=== PATIENT | female | born 1975 | race African-American/Black ===

== ENCOUNTER 2021-05-26 08:04 | Emergency (ER) | payer OTHER ==
[~2021-05-26] VITALS: Ht 149.9 cm; Wt 49.9 kg
[2021-05-26 08:12] VITALS: BP 119/71
[2021-05-26] MEDS ORDERED: MORPHINE SULFATE INJ 4 MG/ML DISP.SYRIN ONE (08:16)
[2021-05-26] MEDS ORDERED: LIDOCAINE HCL/MPF 1% 30 ML VIAL IJ ONE (08:16)
[2021-05-26] MEDS ORDERED: ONDANSETRON 4 MG TAB.RAPDIS ONE (08:16)
[2021-05-26] MEDS ORDERED: MORPHINE SULFATE INJ 2 MG/ML DISP.SYRIN IM ONE (08:30)
[2021-05-26] MEDS ORDERED: LIDOCAINE HCL/PF 1% 30 ML VIAL TP ONE (08:30)
[2021-05-26] MEDS ORDERED: ONDANSETRON 4 MG TAB.RAPDIS SL ONE (08:30)
--- NOTE | 2021-05-26 08:30 | NUR ---
I&D SET UP. PATIENT MEDICATED.
--- NOTE | 2021-05-26 08:49 | NUR ---
I&D DONE, DRAINED BY DR. ABBOTT. COVERED WITH DRESSING.
--- NOTE | 2021-05-26 08:50 | NUR ---
PATIENT IS REQUESTING FOR [employer] TREASURY CONSULTANT. CALLED [employer]PT. NO ANSWER AT THIS TIME.
[2021-05-26] MEDS ORDERED: SULF1TAB48 PO (08:55)
--- NOTE | 2021-05-26 09:58 | NUR ---
PATIENT A/OX3, BREATHING EVEN AND UNLABORED, NO SOB NOTED. Patient discharged to caregiver in stable condition. Written and verbal after care instructions given. Patient verbalizes understanding of instruction.
== END 2021-05-26 09:59 | disposition home or self-care (01) ==
LOC: ER 08:33
DX: L02.31 Cutaneous abscess of buttock (principal); F32.9 Major depressive disorder, single episode, unspecified
CPT/HCPCS: 10060; 96372; 99283; J2270; J3490 ×2; Q0162

== ENCOUNTER 2022-01-27 14:24 | Emergency (ER) | payer OTHER ==
[~2022-01-27] VITALS: Ht 149.9 cm; Wt 41.3 kg
[~2022-01-27 14:24] MED LIST: SULF1TAB48 PO
--- NOTE | 2022-01-27 14:30 | NUR ---
[id number] FROM [facility] FOR NOTED FACIAL SWELLING/FORHEAD ABSCESS AND LEFT EAR X1WEEK. PATIENT IS ALERT, ORIENTED X4. VITALS CHECKED. PLACED COMFORTABLY IN BED
[2022-01-27] MEDS ORDERED: IV NS 0.9% 1,000 ML BAG IV ONE (15:30)
[2022-01-27] MEDS ORDERED: VANCOMYCIN 1 GM in IV D5W 250 ML IV ONE (15:30)
[2022-01-27] MEDS ORDERED: IV NS 0.9% 500 ML BAG IV ONE (15:30)
[2022-01-27] MEDS ORDERED: HYDROMORPHONE 1 MG/1 ML DISP.SYRIN IV ONE ×2 (15:30→18:30)
[2022-01-27] MEDS ORDERED: ONDANSETRON HCL/PF - ER 4 MG/2 ML VIAL IV ONE (15:30)
[2022-01-27] MEDS ORDERED: CEFEPIME 1 GM in IV D5W 50 ML IV ONE (15:30)
--- NOTE | 2022-01-27 15:30 | NUR ---
IV CANNULA G18 INSERTED ON RIGHT AC. BLOOD DRAWN AND SENT TO LAB
--- NOTE | 2022-01-27 15:40 | NUR ---
URINE SPECIMEN SENT TO LAB
--- NOTE | 2022-01-27 15:46 | NUR ---
CXR DONE AT BEDSIDE
[2022-01-27] MEDS ORDERED: ONDANSETRON HCL/PF 4 MG/2 ML VIAL ONE (15:52)
[2022-01-27] MEDS ORDERED: VANCOMYCIN 1 GM VIAL ONE (15:52)
[2022-01-27] MEDS ORDERED: CEFEPIME 1 GM VIAL ONE (15:52)
[2022-01-27] MEDS ORDERED: HYDROMORPHONE 1 MG/1 ML DISP.SYRIN ONE ×2 (15:53→20:01)
--- NOTE | 2022-01-27 16:19 | NUR ---
IV CEFEPIME 1GM STARTED AT 1619H VIA IV CANNULA G18 ON RT AC. END TIME 1649H.
[2022-01-27 16:35] LABS: BASOPHILS % (AUTO) 0.5 % (0.0-2.0); EOSINOPHILS % (AUTO) 1.2 % (0.0-6.0); HEMATOCRIT 38 % (33-45); HEMOGLOBIN 12.6 g/dL (11.5-14.8); LYMPHOCYTES # (AUTO) 2.3 K/uL (0.8-4.8); LYMPHOCYTES % (AUTO) 27.5 % (20.0-44.0); MEAN CORPUSCULAR HGB CONC 33 g/dl (31.0-36.0); MEAN CORPUSCULAR VOLUME 90 fL (82-100); MONOCYTES # (AUTO) 0.9 K/uL (0.1-1.30); MONOCYTES % (AUTO) 11.5 % (2.0-12.0); NEUTROPHILS # (AUTO) 4.9 K/uL (1.8-8.9); NEUTROPHILS % (AUTO) 59.3 % (43.0-81.0); PLATELET COUNT (AUTO) 376 K/uL (150-450); RED BLOOD CELL COUNT(AUTO) 4.23 MIL/uL (4.0-5.2); WHITE BLOOD COUNT (AUTO) 8.2 K/uL (4.3-11.0)
[2022-01-27 16:43] LABS: BILIRUBIN,URINE NEGATIVE (NEGATIVE); COLOR,URINE YELLOW (YELLOW); LEUKOCYTE ESTERASE ,URINE NEGATIVE (NEGATIVE); NITRITE, URINE NEGATIVE (NEGATIVE); PH,URINE 5.5 (5.0-8.0); PROTEIN,URINE NEGATIVE (NEGATIVE); UGLUCOSE NEGATIVE (NEGATIVE)
[2022-01-27] MEDS ORDERED: diphenhydrAMINE HCL 50 MG/ML VIAL ONE (16:54)
--- NOTE | 2022-01-27 16:55 | NUR ---
PT COMPLAINT OF BODY ITCHINESS. STOPPED VANCO IVPB. DR CLARKE INFORMED WITH ORDERS TO BE CARRIED OUT
[2022-01-27] MEDS ORDERED: diphenhydrAMINE HCL 50 MG/ML VIAL IV ONE (17:00)
[2022-01-27 17:37] LABS: BACTERIA,URINE 1+ /HPF (None Seen); RBC,URINE 0-2 /HPF (0-2); WBC,URINE 0-2 /HPF (0-3)
[2022-01-27 18:37] LABS: ALANINE AMINOTRANSFERASE 22 U/L (12-78); ALBUMIN 3.1 g/dL (3.4-5.0); ALKALINE PHOSPHATASE 90 U/L (46-116); ASPARTATE AMINOTRANSFERASE 17 U/L (15-37); BILIRUBIN,DIRECT 0.1 mg/dL (0.0-0.2); BILIRUBIN,TOTAL 0.4 mg/dL (0.2-1.0); CALCIUM, SERUM 9.4 mg/dL (8.5-10.1); CARBON DIOXIDE 26 mmol/L (21-32); CHLORIDE 102 mmol/L (98-107); CREATININE 0.6 mg/dL (0.6-1.3); GLUCOSE 106 mg/dL (74-106); SODIUM SERUM 136 mmol/L (136-145); TOTAL PROTEIN, SERUM 7.5 g/dL (6.4-8.2); UREA NITROGEN, BLOOD 12 mg/dL (7-18)
[2022-01-27] MEDS ORDERED: IOHEXOL-300 100 ML VIAL IV ONE (18:45)
--- NOTE | 2022-01-27 18:45 | NUR ---
PATIENT WHEELED TO RADIOLOGY ROOM FOR CT SCAN
[2022-01-27] MEDS ORDERED: IV NS 0.9% 250 ML IV ONE (18:46)
[2022-01-27] MEDS ORDERED: CT SWABBABLE VALVE TRANS SET 1 EA INFUS.SET MC ONE (18:46)
[2022-01-27] MEDS ORDERED: CEPH500C2 PO (21:10)
[2022-01-27] MEDS ORDERED: HYDR-3972 PO (21:10)
[2022-01-27] MEDS ORDERED: SULF1TAB48 PO (21:10)
--- NOTE | 2022-01-27 22:22 | NUR ---
PATIENT IS FOR DISCHARGE BUT NOBODY CAN PICK HER UP. SHE CANNOT PROVIDE CELL # OF PEOPLE SHE LIVES WITH. SHE ONLY PROVIDED US CELL # OF THE [facility] ([phone] BUT [facility] IS NOT PICKING UP. CHARGE NURSE GREGG DECIDED TO LET PATIENT STAY OVERNIGHT IN 13 AND DISCHARGE CAN BE ARRANGE IN AM TOGETHER WITH SEED ANALYSIS LABORATORY ASSISTANT. PATIENT LIVES AT : [address] [place] [address]
--- NOTE | 2022-01-28 05:30 | NUR ---
ABLE TO CONTACT NEIGHBOR WHO WILL BE ABLE TO RECEIVE PATIENT AT HOME. WILL ARRANGE FOR TRANSPORT HOME.
--- NOTE | 2022-01-28 05:32 | NUR ---
[facility] ETA 30-60MIN
--- NOTE | 2022-01-28 06:35 | NUR ---
IV removed. Catheter intact and site benign. Pressure and 4x4 applied to site. No bleeding noted.
--- NOTE | 2022-01-28 06:36 | NUR ---
STACY VILLEGASNCE 285 AT BEDSIDE FOR PT TRANSPORT BACK TO HER RESIDENCE IN STABLE CONDITION. REPORT GIVEN TO SHIP/REC/DOC CONTROL
[2022-01-28 06:37] VITALS: BP 131/62
== END 2022-01-28 06:41 | disposition home or self-care (01) ==
LOC: ER 14:26
DX: L02.01 Cutaneous abscess of face (principal); H60.92 Unspecified otitis externa, left ear; L30.9 Dermatitis, unspecified; F32.A Depression, unspecified; R94.31 Abnormal electrocardiogram [ECG] [EKG]
CPT/HCPCS: 36415; 70460; 70487; 71045; 80048; 80076; 80307; 80320; 81001; 83605; 84145; 84484; 84703; 85025; 85730; 87040 ×2; 87086; 93005; 96365; 96368; 96375; 96376; 99285; A6253; J0692 ×2; J1170 ×2; J1200; J2405 ×2; J3370; J7030; J7050; J7060 ×2; Q9967; G0480

== ENCOUNTER 2024-06-18 22:56 | Emergency (ER) | payer MEDICAID, OTHER ==
[~2024-06-18] VITALS: Ht 157.5 cm; Wt 59.0 kg
[~2024-06-18 22:56] MED LIST changes: +CEPH500C2 PO; +HYDR-3972 PO
[2024-06-19] MEDS ORDERED: KETOROLAC TROMETHAMINE 15 MG/ML VIAL ONE (00:23)
[2024-06-19] MEDS: KETOROLAC TROMETHAMINE 15 MG/ML VIAL IV ONE (00:29)
[2024-06-19 00:39] LABS: BASOPHILS % (AUTO) 0.6 % (0.0-2.0); EOSINOPHILS # (AUTO) 0.1 K/uL (0.0-0.7); EOSINOPHILS % (AUTO) 1.1 % (0.0-6.0); HEMATOCRIT 42 % (33-45); HEMOGLOBIN 13.9 g/dL (11.5-14.8); LYMPHOCYTES # (AUTO) 2.8 K/uL (0.8-4.8); LYMPHOCYTES % (AUTO) 40.5 % (20.0-44.0); MEAN CORPUSCULAR HEMOGLOBIN 31 PG (26.0-33.0); MEAN CORPUSCULAR HGB CONC 33 g/dl (31.0-36.0); MEAN CORPUSCULAR VOLUME 94 fL (82-100); MONOCYTES # (AUTO) 0.6 K/uL (0.1-1.30); MONOCYTES % (AUTO) 8.8 % (2.0-12.0); NEUTROPHILS # (AUTO) 3.4 K/uL (1.8-8.9); PLATELET COUNT (AUTO) 284 K/uL (150-450); RED BLOOD CELL COUNT(AUTO) 4.49 MIL/uL (4.0-5.2); RED CELL DISTRIBUTION WIDTH 12.7 % (11.5-15.0); WHITE BLOOD COUNT (AUTO) 6.9 K/uL (4.3-11.0)
[2024-06-19 00:49] LABS: CALCIUM, SERUM 9.4 mg/dL (8.5-10.1); CARBON DIOXIDE 27 mmol/L (21-32); CHLORIDE 104 mmol/L (98-107); CREATININE 0.8 mg/dL (0.6-1.3); GLUCOSE 105 mg/dL (74-106); POTASSIUM 3.8 mmol/L (3.5-5.1); SODIUM SERUM 140 mmol/L (136-145); UREA NITROGEN, BLOOD 12 mg/dL (7-18)
[2024-06-19] MEDS ORDERED: DIPH50CA37 PO (01:49)
[2024-06-19] MEDS ORDERED: KETO10TA2 PO (01:49)
[2024-06-19] MEDS ORDERED: diphenhydrAMINE HCL 50 MG CAPSULE ONE (01:52)
[2024-06-19] MEDS: diphenhydrAMINE HCL 50 MG CAPSULE PO ONE (01:55)
[2024-06-19 04:05] VITALS: BP 125/82; TEMP 98.3; O2SAT 98
== END 2024-06-19 04:06 | disposition home or self-care (01) ==
LOC: ER 23:06
DX: R07.2 Precordial pain (principal); G47.09 Other insomnia; J45.909 Unspecified asthma, uncomplicated; I10 Essential (primary) hypertension; F17.200 Nicotine dependence, unspecified, uncomplicated; F32.A Depression, unspecified; F29 Unspecified psychosis not due to a substance or known physiological condition; Z91.148 Patient's other noncompliance with medication regimen for other reason
CPT/HCPCS: 99285; 96374; 71045; 93005; 85025; 80048; 36415; 84484; Q0163; J1885

== ENCOUNTER 2024-10-20 19:44 | Emergency (ER) | payer MEDICAID, OTHER ==
[~2024-10-20] VITALS: Ht 149.9 cm; Wt 59.0 kg
[~2024-10-20 19:44] MED LIST changes: +DIPH50CA37 PO; +KETO10TA2 PO
[2024-10-20] MEDS ORDERED: HYDROCODONE/APAP 10/325MG TABLET ONE (20:15)
[2024-10-20] MEDS ORDERED: ONDANSETRON 4 MG TAB.RAPDIS ONE (20:16)
[2024-10-20] MEDS: HYDROCODONE/APAP 10/325MG TABLET PO ONE (20:21)
[2024-10-20] MEDS: ONDANSETRON 4 MG TAB.RAPDIS SL ONE (20:21)
[2024-10-20 21:57] VITALS: BP 134/80; TEMP 98; O2SAT 98
== END 2024-10-20 22:16 | disposition home or self-care (01) ==
LOC: ER 19:46
DX: G89.29 Other chronic pain (principal); M79.641 Pain in right hand; E11.9 Type 2 diabetes mellitus without complications; I10 Essential (primary) hypertension; Z79.899 Other long term (current) drug therapy
CPT/HCPCS: 99283; Q0162